=== PATIENT | female | born 1940 | race Hispanic/Latino ===

== ENCOUNTER 2017-06-13 12:56 | Outpatient (CLI) | payer OTHER ==
--- NOTE | 2017-06-13 14:02 | Ultrasound Report ---
Renal ultrasound: Chronic renal disease. The right renal length is 8.9 cm. The left renal length is 11.1 cm. New kidney isn't optimally visualized. The parenchyma of both kidneys is narrowed but significantly worse on the right than left. There is a 6 mm calculus in the right kidney but there is no obstruction. There is a echolucent mass in the superior left kidney measuring 5.5 cm. This was noted on prior CT in 2007. A smaller circumscribed lucency is noted in the mid kidney measuring 18 mm. No other significant findings. Transverse imaging of the urinary bladder is not optimal but grossly unremarkable. Impression: 1. Small right kidney with nonobstructing calculus. 2. 2 left renal cysts.
== END 2017-06-13 12:57 | disposition home or self-care (01) ==
LOC: US 12:56
PROVIDERS: ATTEND Family Medicine
DX: I12.9 Hypertensive chronic kidney disease with stage 1 through stage 4 chronic kidney disease, or unspecified chronic kidney disease (principal); N18.3 Chronic kidney disease, stage 3 (moderate); N20.0 Calculus of kidney; N28.1 Cyst of kidney, acquired; N28.89 Other specified disorders of kidney and ureter
CPT/HCPCS: 76770

== ENCOUNTER 2017-06-20 12:54 | Emergency (ER) | payer OTHER ==
--- NOTE | 2017-06-20 13:38 | Emergency Department Report ---
Chief Complaint: Nausea/Vomiting/Diarrhea Stated Complaint: DEHYDRATION Time Seen by Provider: 06/20/17 13:36 - HPI History of Present Illness: Patient with H/O HTN, DM II and CKD presents to ED with c/o non-bloody vomiting since yesterday, >10 episodes daily, and is feeling weak today; went to PCP this am and he sent her here; denies CP, SOB, abdominal pain, diarrhea and fevers - ROS Review of Systems: Negative except for those stated in HPI - Exam Vital Signs: Vital Signs 06/20/17 13:12 Temperature 97.8 F Pulse Rate 78 Respiratory 18 Rate Blood Pressure 131/79 O2 Sat by Pulse 96 Oximetry Physical Exam: NAD Morbidly obese RRR CTAB Abdomen - soft, nontender MSE screening note: Focused history and physical exam performed. Due to findings the following was ordered: ED Disposition for MSE Condition: Stable
[2017-06-20 14:08] LABS: Basophils % (Auto) 0.4 % (0.0-1.8); Eosinophils % (Auto) 2.9 % (0.0-4.3); Hematocrit 38.4 % (30.3-42.9); Hemoglobin 12.2 gm/dl (10.1-14.3); Mean Corpuscular HGB Conc 32 % (30-34); Mean Corpuscular Hemoglobin 30 pg (28-32); Mean Corpuscular Volume 93 fl (79-97); Platelet Count 256 K/mm3 (140-440); Red Blood Count 4.14 M/mm3 (3.65-5.03); White Blood Count 7.8 K/mm3 (4.5-11.0)
[2017-06-20 14:15] LABS: Albumin 3.7 g/dL (3.9-5); Albumin/Globulin Ratio 1.3 %; Bilirubin,Total 0.5 mg/dL (0.1-1.2); Calcium 8.7 mg/dL (8.4-10.2); Chloride 97.5 mmol/L (98-107); Potassium 4.9 mmol/L (3.6-5.0); Total Protein 6.5 g/dL (6.3-8.2)
[2017-06-20 15:14] LABS: Bilirubin,Urine NEG (Negative); Blood,Urine NEG (Negative); Ketones,Urine TR mg/dL (Negative); Leukocyte Esterase,Urine NEG (Negative); Mucus,Urine FEW /HPF; Nitrite,Urine NEG (Negative); Protein,Urine <15 mg/dL mg/dL (Negative)
[2017-06-20] MEDS ORDERED: NACL 0.9% 1000 ML 1,000 ML IV ONE (17:11)
[2017-06-20] MEDS ORDERED: ANTIVERT PO ONE (17:11)
--- NOTE | 2017-06-20 17:17 | Emergency Department Report ---
HPI - General Chief Complaint: Nausea/Vomiting/Diarrhea Time Seen by Provider: 06/20/17 13:36 - HPI HPI: Room 9 The patient is a 77-year-old female presenting with a chief complaint of nausea and vomiting. Patient states her symptoms began 2 days ago with lightheadedness and dizziness with movement. Patient states she then developed nausea and eventually dry heaving and vomiting. Patient states she gets lightheaded with standing motion. Patient denies any recent antibiotic use. Patient denies pain of any type. Location: [See above] Duration: 3 days Quality:, Dizziness, Nausea Severity: Moderate Modifying factors: [see above] Context: [see above] Mode of transportation: [not driving] ED Past Medical Hx - Past Medical History Hx Diabetes: Yes Hx Arthritis: Yes (rheumatoid) Additional medical history: high K+. high cholestrol - Surgical History Hx Cholecystectomy: Yes Additional Surgical History: . 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 Left shoulder plate secondary to fracture - Family History Family history: no significant - Social History Smoking Status: Former Smoker (none since 1985) Substance Use Type: None (denies illicit drug use) - Medications Home Medications: Home Medications Medication Instructions Recorded Confirmed Last Taken Type Cyanocobalamin (Vitamin B-12) 1,000 mcg PO DAILY 12/03/14 12/03/14 Unknown History [B-12] Folic Acid [Folvite] 1 mg PO QDAY 12/03/14 12/03/14 Unknown History Methotrexate(Dose Weekly Only) 15 mg PO QWEEK 12/03/14 12/03/14 Unknown History Mirtazapine [Remeron] 30 mg SL QHS 12/03/14 12/03/14 Unknown History Nitrofurantoin [place]/M-Cryst 100 mg PO Q12HR #14 capsule 12/03/14 Unknown Rx [Macrobid] Omeprazole [PriLOSEC] 20 mg PO QDAY 12/03/14 12/03/14 Unknown History Pravastatin Sodium [Pravastatin] 40 mg PO QHS 12/03/14 12/03/14 Unknown History Prednisone [predniSONE] 2 mg PO QDAY 12/03/14 12/03/14 Unknown History Meclizine [Antivert] 25 mg PO TID PRN #20 tablet 06/20/17 Unknown Rx Ondansetron [Zofran ODT TAB] 8 mg PO Q8HR #20 tab.rapdis 06/20/17 Unknown Rx ED Review of Systems ROS: Stated complaint: DEHYDRATION Other details as noted in HPI Constitutional: denies: fever Eyes: denies: eye pain ENT: denies: ear pain Cardiovascular: denies: chest pain Gastrointestinal: nausea, vomiting. denies: abdominal pain Musculoskeletal: denies: back pain Neurological: vertigo. denies: headache Physical Exam - Physical Exam Vital Signs: Vital Signs 06/20/17 13:12 Temperature 97.8 F Pulse Rate 78 Respiratory 18 Rate Blood Pressure 131/79 O2 Sat by Pulse 96 Oximetry Physical Exam: GENERAL: The patient is well-developed well-nourished female lying on stretcher not appearing to be in acute distress. [] HEENT: Normocephalic. Atraumatic. Extraocular motions are intact. Patient has moist mucous membranes. No nystagmus noted NECK: Supple. No meningitic signs are noted. There is no adenopathy noted. CHEST/LUNGS: Clear to auscultation. There is no respiratory distress noted. HEART/CARDIOVASCULAR: Regular. There is no tachycardia. There is no gallop rub or murmur. ABDOMEN: Abdomen is soft, nontender. Patient has normal bowel sounds. There is no abdominal distention. SKIN: There is no rash. There is no diaphoresis. NEURO: The patient is awake, alert, and oriented. The patient is cooperative. The patient has no focal neurologic deficits. The patient has normal speech. 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 No dysmetria noted with [id number] bilaterally MUSCULOSKELETAL: There is no evidence of acute injury. ED Course Vital Signs 06/20/17 13:12 Temperature 97.8 F Pulse Rate 78 Respiratory 18 Rate Blood Pressure 131/79 O2 Sat by Pulse 96 Oximetry ED Medical Decision Making - Lab Data Result diagrams: 06/20/17 13:36 06/20/17 13:36 Laboratory Tests 06/20/17 06/20/17 06/20/17 13:36 13:36 Unknown WBC 7.8 RBC 4.14 Hgb 12.2 Hct 38.4 MCV 93 MCH 30 MCHC 32 RDW 23.0 H Plt Count 256 Lymph % (Auto) 18.9 [place] % (Auto) 16.0 H Eos % (Auto) 2.9 Baso % (Auto) 0.4 Lymph # 1.5 [place] # 1.2 H Eos # 0.2 Baso # 0.0 Seg Neutrophils % 61.8 Seg Neutrophils # 4.8 Sodium 136 L Potassium 4.9 Chloride 97.5 L Carbon Dioxide 24 Anion Gap 19 BUN 21 H Creatinine 1.0 Estimated GFR 53 BUN/Creatinine Ratio 21 Glucose 177 H Calcium 8.7 Total Bilirubin 0.50 AST 22 ALT 15 Alkaline Phosphatase 103 Total Protein 6.5 Albumin 3.7 L Albumin/Globulin Ratio 1.3 Lipase 25 Urine Color Yellow Urine Turbidity Clear Urine pH 5.0 Ur Specific [place] 1.023 Urine Protein <15 mg/dl Urine Glucose (UA) Neg Urine Ketones Tr Urine Blood Neg Urine Nitrite Neg Urine Bilirubin Neg Urine Urobilinogen 2.0 Ur Leukocyte Esterase Neg Urine WBC (Auto) 2.0 Urine RBC (Auto) 1.0 U Epithel Cells (Auto) < 1.0 Urine Mucus Few - EKG Data -: EKG Interpreted by Ut EKG shows normal: sinus rhythm Rate: normal - EKG Data When compared to previous EKG there are: previous EKG unavailable Interpretation: other (no ischemic changes seen) - Radiology Data Radiology results: report reviewed (CT head), image reviewed (CT head) FINAL REPORT EXAM: CT HEAD/BRAIN WO CON HISTORY: dizziness, nausea/vomiting TECHNIQUE: Standard unenhanced CT of the head at 5.0 millimeter axial increments. PRIORS: CT head 12/03/2014 FINDINGS: The ventricular system is normal in size and configuration. There is no evidence for parenchymal volume loss. There low-density in the periventricular white matter bilaterally consistent with small vessel ischemic changes, stable. There is no evidence for mass lesion, mass effect, midline shift, acute intracranial hemorrhage, or acute ischemia/ infarction. No evidence for acute skull fracture is seen. No abnormality in the overlying scalp soft tissues is seen. Visualized paranasal sinuses are clear. IMPRESSION: Small vessel ischemic changes again noted. No acute intracranial process noted. No change. Transcribed By: [facility] Dictated By: PERLA DE GUZMAN MD Electronically Authenticated By: PERLA DE GUZMAN MD Signed Date/Time: 06/20/171432 DD/ 32 TD/TT: 06/20/171432 - Differential Diagnosis vertigo Critical care attestation.: If time is entered above; I have spent that time in minutes in the direct care of this critically ill patient, excluding procedure time. ED Disposition Clinical Impression: Vertigo Disposition: DC-01 TO HOME OR SELFCARE Is pt being admited?: No Does the pt Need Aspirin: No Condition: Stable Instructions: Vertigo (ED) Additional Instructions: Return to the emergency department immediately should you develop worsening symptoms, fever, inability to tolerate food or liquid or any other concerns. Prescriptions: Meclizine [Antivert] 25 mg PO TID PRN #20 tablet PRN Reason: Vertigo Ondansetron [Zofran ODT TAB] 8 mg PO Q8HR #20 tab.rapdis Referrals: AMELIA LOWRY MD [Primary Care Provider] - 3-5 Days TAYLOR OBRIEN MD [Staff Physician] - 3-5 Days (Dr. Obrien is a neurologist. Please follow up with him for further evaluation) Time of Disposition: 19:13
--- NOTE | 2017-06-20 18:36 | Cat Scan Report ---
FINAL REPORT EXAM: CT HEAD/BRAIN WO CON HISTORY: dizziness, nausea/vomiting TECHNIQUE: Standard unenhanced CT of the head at 5.0 millimeter axial increments. PRIORS: CT head 12/03/2014 FINDINGS: The ventricular system is normal in size and configuration. There is no evidence for parenchymal volume loss. There low-density in the periventricular white matter bilaterally consistent with small vessel ischemic changes, stable. There is no evidence for mass lesion, mass effect, midline shift, acute intracranial hemorrhage, or acute ischemia/ infarction. No evidence for acute skull fracture is seen. No abnormality in the overlying scalp soft tissues is seen. Visualized paranasal sinuses are clear. IMPRESSION: Small vessel ischemic changes again noted. No acute intracranial process noted. No change.
[2017-06-20 20:41] VITALS: BP 128/76
== END 2017-06-20 20:15 | disposition home or self-care (01) ==
LOC: ED 12:54
DX: R42 Dizziness and giddiness (principal); R11.2 Nausea with vomiting, unspecified; E11.9 Type 2 diabetes mellitus without complications; M19.90 Unspecified osteoarthritis, unspecified site; E78.5 Hyperlipidemia, unspecified; Z87.891 Personal history of nicotine dependence; Z90.49 Acquired absence of other specified parts of digestive tract
CPT/HCPCS: 36415; 70450; 80053; 81001; 83690; 85025; 93005; 93010; 96360; 99284; J7030

== ENCOUNTER 2017-06-30 09:23 | Outpatient (CLI) | payer OTHER ==
--- NOTE | 2017-07-01 07:54 | Cat Scan Report ---
CT of the chest with IV contrast. History: Pulmonary nodule. Findings: There is a 2.3 cm hypodense mass in the left lobe of the thyroid. There is a soft tissue mass in the posterior left hilum interposed between the descending thoracic aorta and the left lower lobe pulmonary artery. This measures approximately 1.9 x 2.4 cm. There is a mass in the left infrahilar region adjacent to the left heart border measuring 1.8 x 2.0 cm. A 6 mm nodule is seen in the left perihilar region. There is a 2.5 x 3.5 cm soft tissue mass in the right lateral chest wall best seen on images 82 through 98 of series 2. There appears to be mild destruction of the adjacent right lateral fifth rib. There is a parenchymal scarring are seen in the right upper lobe. No additional pulmonary findings are seen. No axillary adenopathy. Multiple orthopedic screws are seen in the left proximal humerus. Impression: 2.5 x 3.5 cm soft tissue mass in the right lateral chest wall with associated mild rib destruction as described. Prominent left hilar nodes and a left perihilar pulmonary nodule are also identified. 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 The chest wall mass is accessible to CT-guided biopsy if clinically appropriate.
== END 2017-06-30 09:24 | disposition home or self-care (01) ==
LOC: CT 09:23
PROVIDERS: ATTEND Internal Medicine Rheumatology
DX: Z51.81 Encounter for therapeutic drug level monitoring (principal); J98.4 Other disorders of lung; E07.89 Other specified disorders of thyroid; R22.2 Localized swelling, mass and lump, trunk
CPT/HCPCS: 36415; 71260; 82565; Q9967